=== PATIENT | male | born 1940 | race Caucasian/White ===

== ENCOUNTER → 2018-06-17 | Outpatient (CLI) | payer OTHER | END | disposition home or self-care (01) | LOC: CARD 08:23 | PROVIDERS: ATTEND Internal Medicine | DX: G40.89 Other seizures (principal); I10 Essential (primary) hypertension; E78.49 Other hyperlipidemia; E03.9 Hypothyroidism, unspecified; M19.90 Unspecified osteoarthritis, unspecified site; Z86.010 Personal history of colon polyps | CPT/HCPCS: 95819 ==

== ENCOUNTER 2019-04-16 15:17 | Inpatient (IN) | payer MEDICARE, OTHER ==
[~2019-04-16] VITALS: Ht 167.6 cm; Wt 69.1 kg
--- NOTE | 2019-04-16 15:24 | NUR ---
task RN note: pt brought by ROBYN from [facility] for [facility]; found to be bradycardic and hypertensive; transferred for cardiology consult. EKG taken on arrival, all monitors in place. pt a&ox4, resps even and unlabored. sinus david on monitor, rate 40s with no ectopy. pt denies pain. report given to primary RN Tia.
--- NOTE | 2019-04-16 15:29 | NUR ---
REPORT RECEIVED FROM GIOVANNI TEJADA.
--- NOTE | 2019-04-16 16:01 | NUR ---
PT TO CT AT THIS TIME.
--- NOTE | 2019-04-16 16:01 | NUR ---
Jae bravo in ED - 04/16/19 at 1711 by XAVIER PT BACK TO ROOM FROM CT AT THIS TIME.
[2019-04-16 16:19] LABS: ANION GAP 6 mmol/L (5-15); BASOPHILS # (AUTO) 0.05 x10^3/uL (0-0.1); BASOPHILS % (AUTO) 1 % (0-1); CALCIUM 9.2 mg/dL (8.5-10.1); CHLORIDE 108 mmol/L (98-107); CREATININE 1.16 mg/dL (0.7-1.3); EOSINOPHILS # (AUTO) 0.01 x10^3/uL (0-0.4); EOSINOPHILS % (AUTO) 0 % (1-7); LYMPHOCYTES # (AUTO) 0.98 x10^3/uL (1-3.4); LYMPHOCYTES % (AUTO) 8 % (22-44); MD NO; MEAN CORPUSCULAR HGB CONC 33.2 g/dL (33.2-36.2); MEAN CORPUSCULAR VOLUME 96.3 fL (81-97); MEAN PLATELET VOLUME 8.3 fL (7.4-10.4); MONOCYTES # (AUTO) 0.46 x10^3/uL (0.2-0.8); MONOCYTES % (AUTO) 4 % (2-9); NEUTROPHILS # (AUTO) 10.36 x10^3/uL (1.8-6.8); NEUTROPHILS % (AUTO) 87 % (42-75); PLATELET COUNT 217 x10^3/uL (130-400); RED BLOOD COUNT 4.67 x10^6/uL (4.38-5.82); RED CELL DISTRIBUTION WIDTH 13.5 % (9.4-14.8)
--- NOTE | 2019-04-16 16:21 | NUR ---
PT BACK TO ROOM FROM CT AT THIS TIME.
[2019-04-16 16:22] LABS: TROPONIN I < 0.015 ng/mL (0.000-0.045)
[2019-04-16] MEDS ORDERED: SODIUM CHLORIDE FLUSH 10ML SYR IVF PRN (17:00)
--- NOTE | 2019-04-16 17:48 | NUR ---
PT AND PT'S ARE NOT ABLE TO PROVIDE PT'S HOME MEDICATIONS.
--- NOTE | 2019-04-16 17:48 | NUR ---
PT SITTING IN GURNEY. PT'S AOX4. RESPS EVEN AND UNLABORED. PT'S AT BEDSIDE. ALL MONITORS IN PLACE. CALL LIGHT WITHIN REACH.
--- NOTE | 2019-04-16 17:56 | NUR ---
REPORT GIVEN TO ALISSON TEJADA. ALL QUESTIONS ANSWERED.
[2019-04-16 18:21] LABS: TROPONIN I < 0.015 ng/mL (0.000-0.045)
[2019-04-16] MEDS ORDERED: POLYETHYLENE GLYCOL 17 GM PACKET PO PRN (19:00)
[2019-04-16] MEDS ORDERED: ONDANSETRON ODT 4 MG PO PRN (19:00)
[2019-04-16] MEDS ORDERED: PROMETHAZINE 25 MG/ML, 1ML IM PRN (19:00)
[2019-04-16] MEDS ORDERED: ONDANSETRON 2MG/ML, 2ML IVPush PRN (19:00)
[2019-04-16] MEDS ORDERED: BISACODYL 10 MG SUPP PR PRN (19:00)
[2019-04-16] MEDS ORDERED: OXYcodone IR 5MG TABLET PO PRN (19:00)
[2019-04-16] MEDS ORDERED: ACETAMINOPHEN 325 MG TABLET PO PRN (19:00)
[2019-04-16] MEDS ORDERED: DOCUSATE 100 MG CAPSULE PO PRN (19:00)
[2019-04-16 19:16] LABS: FREE T4 (FREE THYROXINE) 0.65 ng/dL (0.76-1.46)
[2019-04-16 19:20] LABS: HEMOGLOBIN A1C 5.7 % (4.2-6.3)
[2019-04-16 19:30] VITALS: BP 192/75
[2019-04-16 19:59] VITALS: BP 126/59
[2019-04-16 20:00] VITALS: BP 115/57
[2019-04-16] MEDS: SODIUM CHLORIDE 0.9% 1,000 ML IV SCH (20:05)
[2019-04-16 23:33] LABS: TROPONIN I < 0.015 ng/mL (0.000-0.045)
[2019-04-17 00:03] VITALS: BP 115/57
[2019-04-17 02:29] VITALS: BP 157/65
[2019-04-17 05:58] LABS: BASOPHILS # (AUTO) 0.04 x10^3/uL (0-0.1); BASOPHILS % (AUTO) 0 % (0-1); EOSINOPHILS # (AUTO) 0.25 x10^3/uL (0-0.4); EOSINOPHILS % (AUTO) 3 % (1-7); LYMPHOCYTES # (AUTO) 1.33 x10^3/uL (1-3.4); LYMPHOCYTES % (AUTO) 17 % (22-44); MD NO; MEAN CORPUSCULAR HEMOGLOBIN 32.5 pg (27.5-34.5); MEAN CORPUSCULAR HGB CONC 33.5 g/dL (33.2-36.2); MEAN PLATELET VOLUME 8.1 fL (7.4-10.4); MONOCYTES # (AUTO) 0.51 x10^3/uL (0.2-0.8); MONOCYTES % (AUTO) 6 % (2-9); NEUTROPHILS # (AUTO) 5.84 x10^3/uL (1.8-6.8); NEUTROPHILS % (AUTO) 73 % (42-75); PLATELET COUNT 209 x10^3/uL (130-400); RED BLOOD COUNT 4.13 x10^6/uL (4.38-5.82); RED CELL DISTRIBUTION WIDTH 13.5 % (9.4-14.8)
[2019-04-17] MEDS: SODIUM CHLORIDE 0.9% 1,000 ML IV SCH ×4 (06:06→23:49)
[2019-04-17 06:07] LABS: ALBUMIN 3.2 g/dL (3.4-5.0); ANION GAP 6 mmol/L (5-15); CALCIUM 8.2 mg/dL (8.5-10.1); CHLORIDE 109 mmol/L (98-107); CHOLESTEROL, TOTAL 192 mg/dL (140-239); CREATININE 1.15 mg/dL (0.7-1.3)
[2019-04-17 06:12] LABS: ALANINE AMINOTRANSFERASE 20 U/L (12-78); ALKALINE PHOSPHATASE 57 U/L (45-117); BILIRUBIN,TOTAL 1.1 mg/dL (0.2-1.0); CHOL/HDL RATIO 2.9; HDL CHOL % 34 % (26-37); HDL CHOLESTEROL (DIRECT) 66 mg/dL (40-60); LDL CHOLESTEROL,CALCULATED 115 mg/dL (54-169); LDL/HDL RATIO 1.7 (0.5-3.0); TOTAL PROTEIN 5.8 g/dL (6.4-8.2); TRIGLYCERIDES 54 mg/dL (50-200); TROPONIN I < 0.015 ng/mL (0.000-0.045); VLDL CHOLESTEROL 11 mg/dL (0-25)
[2019-04-17 08:44] VITALS: BP 163/65
[2019-04-17] MEDS ORDERED: LEVOTHYROXINE 25 MCG TABLET PO SCH (09:00)
[2019-04-17] MEDS ORDERED: CEFAZOLIN PMX 1GM/50ML 50 ML IVPB ONE (10:00)
[2019-04-17] MEDS: TAMSULOSIN 0.4 MG CAP.ER.24H PO SCH (10:00)
[2019-04-17] MEDS: FINASTERIDE 5 MG TABLET PO SCH (13:07)
[2019-04-17 15:57] VITALS: BP 180/88
[2019-04-17] MEDS: hydrALAzine 20 MG/ML, 1ML IVPush PRN (15:58)
[2019-04-17 17:33] LABS: MICROSCOPIC AUTO
[2019-04-17 17:40] LABS: CULTURE INDICATED? NO
[2019-04-17 19:46] VITALS: BP 101/54
[2019-04-17] MEDS: AMLODIPINE 5 MG TABLET PO SCH (20:52)
[2019-04-18] MEDS ORDERED: HALOPERIDOL 5 MG/ML IM PRN
[2019-04-18 01:25] VITALS: BP 144/61
[2019-04-18] MEDS: LEVOTHYROXINE 100 MCG TABLET PO SCH (05:58)
[2019-04-18 07:55] VITALS: BP 183/69
[2019-04-18] MEDS: FINASTERIDE 5 MG TABLET PO SCH (08:50)
[2019-04-18] MEDS: AMLODIPINE 5 MG TABLET PO SCH ×2 (08:50→21:14)
[2019-04-18] MEDS: TAMSULOSIN 0.4 MG CAP.ER.24H PO SCH (08:50)
[2019-04-18] MEDS: SODIUM CHLORIDE 0.9% 1,000 ML IV SCH (10:02)
[2019-04-18 11:32] VITALS: BP 141/58
[2019-04-18] MEDS ORDERED: FENTANYL PF 100 MCG/2ML ONE (12:00)
[2019-04-18] MEDS ORDERED: MIDAZOLAM 1 MG/ML, 5ML ONE (12:00)
[2019-04-18] MEDS ORDERED: LIDOCAINE 2%, 20ML ONE (12:00)
[2019-04-18] MEDS ORDERED: CEFAZOLIN PMX 1GM/50ML 50 ML ONE (12:00)
[2019-04-18] MEDS ORDERED: CEFAZOLIN 1,000 MG ONE (12:00)
[2019-04-18] MEDS ORDERED: HYDROcodone/APAP 5/325 TABLET PO PRN (14:00)
[2019-04-18] MEDS ORDERED: HOLD MEDICATION MC PRN (14:00)
[2019-04-18 14:09] VITALS: BP 154/71
[2019-04-18 20:25] VITALS: BP 135/69
[2019-04-18] MEDS: SODIUM CHLORIDE FLUSH 10ML SYR IVF SCH (21:14)
[2019-04-18] MEDS: CEFAZOLIN PMX 1GM/50ML 50 ML IVPB SCH (21:14)
[2019-04-19] VITALS (7 sets, daily range): BP systolic 81–181; BP diastolic 48–83
[2019-04-19] MEDS: hydrALAzine 20 MG/ML, 1ML IVPush PRN (00:53)
[2019-04-19] MEDS: SODIUM CHLORIDE 0.9% 1,000 ML IV SCH (04:20)
[2019-04-19] MEDS: CEFAZOLIN PMX 1GM/50ML 50 ML IVPB SCH (05:37)
[2019-04-19] MEDS: LEVOTHYROXINE 100 MCG TABLET PO SCH (05:38)
[2019-04-19] MEDS ORDERED: CHLORTHALIDONE 25 MG TABLET PO SCH (09:00)
[2019-04-19] MEDS: SODIUM CHLORIDE FLUSH 10ML SYR IVF SCH ×2 (09:09→20:06)
[2019-04-19] MEDS: TAMSULOSIN 0.4 MG CAP.ER.24H PO SCH (09:09)
[2019-04-19] MEDS: AMLODIPINE 5 MG TABLET PO SCH ×2 (09:10→20:06)
[2019-04-19] MEDS: FINASTERIDE 5 MG TABLET PO SCH (09:22)
[2019-04-19] MEDS ORDERED: FLU VACC QS2019-20 36MOS UP/PF 0.5 ML IM-VACC ONE (11:30)
[2019-04-19] MEDS ORDERED: SODIUM CHLORIDE 0.9%, 500ML IVBOLUS ONE (14:00)
[2019-04-20] MEDS: LEVOTHYROXINE 100 MCG TABLET PO SCH (05:11)
[2019-04-20 05:24] VITALS: BP 132/69
[2019-04-20] MEDS: AMLODIPINE 5 MG TABLET PO SCH ×2 (09:00→20:08)
[2019-04-20] MEDS: CHLORTHALIDONE 25 MG TABLET PO SCH (09:00)
[2019-04-20] MEDS: TAMSULOSIN 0.4 MG CAP.ER.24H PO SCH ×2 (09:00→20:26)
[2019-04-20 09:24] LABS: BASOPHILS # (AUTO) 0.09 x10^3/uL (0-0.1); BASOPHILS % (AUTO) 1 % (0-1); EOSINOPHILS # (AUTO) 0.22 x10^3/uL (0-0.4); EOSINOPHILS % (AUTO) 3 % (1-7); LYMPHOCYTES # (AUTO) 1.15 x10^3/uL (1-3.4); LYMPHOCYTES % (AUTO) 16 % (22-44); MD NO; MEAN CORPUSCULAR HEMOGLOBIN 32.4 pg (27.5-34.5); MEAN CORPUSCULAR HGB CONC 33.5 g/dL (33.2-36.2); MEAN CORPUSCULAR VOLUME 96.7 fL (81-97); MEAN PLATELET VOLUME 7.7 fL (7.4-10.4); MONOCYTES # (AUTO) 0.54 x10^3/uL (0.2-0.8); MONOCYTES % (AUTO) 7 % (2-9); NEUTROPHILS # (AUTO) 5.39 x10^3/uL (1.8-6.8); NEUTROPHILS % (AUTO) 73 % (42-75); PLATELET COUNT 217 x10^3/uL (130-400); RED CELL DISTRIBUTION WIDTH 13.9 % (9.4-14.8)
[2019-04-20 09:32] LABS: ALANINE AMINOTRANSFERASE 25 U/L (12-78); ALBUMIN 3.6 g/dL (3.4-5.0); ANION GAP 5 mmol/L (5-15); CHLORIDE 108 mmol/L (98-107); CREATININE 1.08 mg/dL (0.7-1.3)
[2019-04-20 09:34] LABS: ALKALINE PHOSPHATASE 69 U/L (45-117); BILIRUBIN,TOTAL 0.8 mg/dL (0.2-1.0); TOTAL PROTEIN 6.7 g/dL (6.4-8.2)
[2019-04-20 10:01] VITALS: BP 93/55
[2019-04-20] MEDS: FINASTERIDE 5 MG TABLET PO SCH (10:03)
[2019-04-20] MEDS: SODIUM CHLORIDE FLUSH 10ML SYR IVF SCH ×2 (10:04→20:26)
[2019-04-20 10:13] LABS: MICROSCOPIC NOT IND
[2019-04-20 10:19] VITALS: BP 92/55
[2019-04-20 10:34] LABS: CULTURE INDICATED? NO
[2019-04-20 12:59] VITALS: BP 97/59
[2019-04-20 19:53] VITALS: BP 115/71
[2019-04-21 00:09] VITALS: BP 146/79
[2019-04-21 05:22] LABS: BASOPHILS # (AUTO) 0.05 x10^3/uL (0-0.1); BASOPHILS % (AUTO) 1 % (0-1); CHLORIDE 109 mmol/L (98-107); EOSINOPHILS # (AUTO) 0.28 x10^3/uL (0-0.4); EOSINOPHILS % (AUTO) 4 % (1-7); LYMPHOCYTES # (AUTO) 1.71 x10^3/uL (1-3.4); LYMPHOCYTES % (AUTO) 22 % (22-44); MD NO; MEAN CORPUSCULAR HEMOGLOBIN 32.5 pg (27.5-34.5); MEAN CORPUSCULAR HGB CONC 33.4 g/dL (33.2-36.2); MEAN CORPUSCULAR VOLUME 97.4 fL (81-97); MEAN PLATELET VOLUME 7.9 fL (7.4-10.4); MONOCYTES # (AUTO) 0.64 x10^3/uL (0.2-0.8); MONOCYTES % (AUTO) 8 % (2-9); NEUTROPHILS # (AUTO) 5.19 x10^3/uL (1.8-6.8); NEUTROPHILS % (AUTO) 66 % (42-75); PLATELET COUNT 210 x10^3/uL (130-400); RED BLOOD COUNT 4.89 x10^6/uL (4.38-5.82); RED CELL DISTRIBUTION WIDTH 13.8 % (9.4-14.8)
[2019-04-21 05:28] LABS: ALANINE AMINOTRANSFERASE 32 U/L (12-78); ALBUMIN 3.5 g/dL (3.4-5.0); ALKALINE PHOSPHATASE 64 U/L (45-117); BILIRUBIN,TOTAL 0.5 mg/dL (0.2-1.0); CALCIUM 8.8 mg/dL (8.5-10.1); TOTAL PROTEIN 6.7 g/dL (6.4-8.2)
[2019-04-21 06:00] LABS: ANION GAP 8 mmol/L (5-15)
[2019-04-21] MEDS: LEVOTHYROXINE 100 MCG TABLET PO SCH (06:23)
[2019-04-21 07:59] VITALS: BP 152/76
[2019-04-21] MEDS: AMLODIPINE 5 MG TABLET PO SCH ×2 (10:52→21:33)
[2019-04-21] MEDS: FINASTERIDE 5 MG TABLET PO SCH (10:52)
[2019-04-21] MEDS: CHLORTHALIDONE 25 MG TABLET PO SCH (10:52)
[2019-04-21] MEDS: SODIUM CHLORIDE FLUSH 10ML SYR IVF SCH ×2 (10:53→21:33)
[2019-04-21 12:35] VITALS: BP 111/58
[2019-04-21] MEDS ORDERED: CHLO25TA PO (14:02)
[2019-04-21] MEDS ORDERED: TAMS-11 PO (14:02)
[2019-04-21] MEDS ORDERED: LEVO125T PO (14:02)
[2019-04-21] MEDS ORDERED: AMLO-150 PO (14:02)
[2019-04-21] MEDS ORDERED: FINA5TAB4 PO (14:02)
[2019-04-21] MEDS ORDERED: ATOR40TA PO (15:13)
[2019-04-21] MEDS ORDERED: ASPI-515 PO (15:13)
[2019-04-21 16:25] VITALS: BP 131/85
[2019-04-21 19:31] VITALS: BP 130/71
[2019-04-21] MEDS: TAMSULOSIN 0.4 MG CAP.ER.24H PO SCH (21:33)
[2019-04-22] MEDS ORDERED: LEVOTHYROXINE 125 MCG TABLET PO SCH (06:00)
[2019-04-22] MEDS: CHLORTHALIDONE 25 MG TABLET PO SCH (07:44)
[2019-04-22] MEDS: SODIUM CHLORIDE FLUSH 10ML SYR IVF SCH (07:44)
[2019-04-22] MEDS: FINASTERIDE 5 MG TABLET PO SCH (07:44)
[2019-04-22] MEDS: AMLODIPINE 5 MG TABLET PO SCH (07:44)
[2019-04-22 08:09] VITALS: BP 112/61
== END 2019-04-22 13:43 | disposition home or self-care (01) | DRG 242 ==
LOC: ED 16:47 → EDIP 16:48 → ED 17:29 → 5SO 19:05
PROVIDERS: ADMIT Internal Medicine; ATTEND Internal Medicine
PROC: 0JH606Z Insertion of Pacemaker, Dual Chamber into Chest Subcutaneous Tissue and Fascia, Open Approach (ICD-10-PCS; principal; 2019-04-18)
PROC: 02HK3JZ Insertion of Pacemaker Lead into Right Ventricle, Percutaneous Approach (ICD-10-PCS; 2019-04-18)
PROC: 02H63JZ Insertion of Pacemaker Lead into Right Atrium, Percutaneous Approach (ICD-10-PCS; 2019-04-18)
DX: I49.5 Sick sinus syndrome (principal); G93.41 Metabolic encephalopathy; I16.1 Hypertensive emergency; E03.9 Hypothyroidism, unspecified; R55 Syncope and collapse; K21.9 Gastro-esophageal reflux disease without esophagitis; I10 Essential (primary) hypertension; I35.1 Nonrheumatic aortic (valve) insufficiency; N40.0 Benign prostatic hyperplasia without lower urinary tract symptoms; W18.30XA Fall on same level, unspecified, initial encounter; Z96.659 Presence of unspecified artificial knee joint; I95.9 Hypotension, unspecified; Z86.73 Personal history of transient ischemic attack (TIA), and cerebral infarction without residual deficits; Z23 Encounter for immunization
CPT/HCPCS: 33208; 36415; 70450; 71045; 80048; 80053; 80061; 81001; 81003; 82040; 82607; 83036; 83605; 83735; 83880; 84439; 84443; 84484; 85025; 90686; 93005; 93306; 99156; 99157; 99285; C1779; C1785; C1892; G0378; J0690; J2250; J3010; J0360; J1630; J7030; J7040

== ENCOUNTER → 2019-05-21 | Outpatient (CLI) | payer MEDICARE, OTHER ==
[~2019-05-21] MED LIST: AMLO-150 PO; ASPI-515 PO; ATOR40TA PO; CHLO25TA PO; FINA5TAB4 PO; LEVO125T PO; TAMS-11 PO
== END | disposition home or self-care (01) ==
LOC: CVU 07:18
PROVIDERS: ATTEND Nurse Practitioner Family
DX: I08.3 Combined rheumatic disorders of mitral, aortic and tricuspid valves (principal); Z95.0 Presence of cardiac pacemaker
CPT/HCPCS: 93306; 93356

== ENCOUNTER → 2019-12-20 | Outpatient (CLI) | payer MEDICARE, OTHER | END | disposition home or self-care (01) | LOC: CFH 12:26 | PROVIDERS: ATTEND Internal Medicine Cardiovascular Disease | DX: I08.8 Other rheumatic multiple valve diseases (principal); R55 Syncope and collapse | CPT/HCPCS: 93306; 93356 ==